=== PATIENT | male | born 1955 | race Caucasian/White ===

== ENCOUNTER → 2017-12-24 | Outpatient (CLI) | payer BC, OTHER | LOC: MHCPAIN 08:54 | DX: G89.29 Other chronic pain (principal); M54.12 Radiculopathy, cervical region; M47.812 Spondylosis without myelopathy or radiculopathy, cervical region; R51 Headache; M79.18 Myalgia, other site | CPT/HCPCS: G0463 ==

== ENCOUNTER 2018-02-06 15:15 | Outpatient (RCR) | payer BC, OTHER | END 2018-02-07 14:50 | disposition home or self-care (01) | LOC: WSPT 15:15 | DX: M47.22 Other spondylosis with radiculopathy, cervical region (principal); G89.29 Other chronic pain; R51 Headache; M54.81 Occipital neuralgia ==

== ENCOUNTER → 2022-12-06 | Outpatient (CLI) | payer OTHER | LOC: MHCPAIN 10:10 | DX: M47.812 Spondylosis without myelopathy or radiculopathy, cervical region (principal); M54.2 Cervicalgia | CPT/HCPCS: J0665 ==

== ENCOUNTER → 2023-03-28 | Outpatient (CLI) | payer MEDICARE, OTHER | LOC: COL.RAD 08:15 | DX: R10.84 Generalized abdominal pain (principal) ==

== ENCOUNTER 2023-05-10 07:47 | Day surgery (SDC) | payer MEDICARE, OTHER ==
[~2023-05-10] VITALS: Ht 167.6 cm; Wt 60.6 kg
[~2023-05-10 07:47] MED LIST: LR 1,000 ML IV SCH; Ondansetron 4 MG/2 ML VIAL IV PRN
[2023-05-10] MEDS ORDERED: LIPITOR 40MG TA40 MG PO (08:03)
[2023-05-10] MEDS ORDERED: MAXALT10 MG PO (08:03)
[2023-05-10] MEDS ORDERED: FIORICET 325 MG1 TA1 PO (08:04)
[2023-05-10] MEDS ORDERED: VITAMIN D31000 I1 PO (08:05)
[2023-05-10] MEDS ORDERED: DIGESTIVE ADVA1 EAC1 PO (08:05)
[2023-05-10] MEDS ORDERED: LEVBID0.375 MG PO (08:06)
--- NOTE | 2023-05-10 08:22 | NUR ---
Pt arrived with , bowels liquid and WNL, VSS, PIV to RAC with LR hanging; consents reviewed and signed, no questions/concerns; reviewed history/meds/pharm/allergies.
[2023-05-10 08:23] VITALS: BP 152/94; PULSE 105; TEMP 97.4
[2023-05-10] MEDS ORDERED: Lidocaine PF 2% (20 MG/ML) 5 ML VIAL ONE (09:32)
[2023-05-10 10:05] VITALS: BP 127/90; PULSE 78; TEMP 97.6
--- NOTE | 2023-05-10 10:05 | NUR ---
The patient arrived back to [facility] from the endoscopy suite at this time. The patient appears alert and oriented and ambulated from the cart to the relciner in his room with the stand by assistance of two nurses and appeared to tolerate the activity well. Post procedure vital signs were started at this time. The patient agrees to try some coffee and a muffin at this time. at bedside. Call light is within reach. Denies any further needs.
[2023-05-10 10:20] VITALS: BP 125/97; PULSE 78
--- NOTE | 2023-05-10 10:20 | NUR ---
The patient has spoke with Dr. Blake and voices a desire to be discharged home. The patient has finished his food and drink and appeared to tolerate both well.
--- NOTE | 2023-05-10 10:25 | NUR ---
Discharge instructions were reviewed with the patient and his at this time. They both verbalized understanding and have no questions for the nurse at this time. The patient's IV to his right anecubital was removed and a pressure dressing was applied to the site. The patient was instructed to get dressed and notify the staff when he is ready to be escorted out.
--- NOTE | 2023-05-10 10:35 | NUR ---
The patient was escorted out via wheelchair to a private vehicle by FRANCISCO Arora. The patient's belongings and discharge papework were sent with him. The patient's is present to drive him home.
== END 2023-05-10 10:35 | disposition home or self-care (01) ==
LOC: SDCO 07:47
DX: Z12.11 Encounter for screening for malignant neoplasm of colon (principal); K21.9 Gastro-esophageal reflux disease without esophagitis; K44.9 Diaphragmatic hernia without obstruction or gangrene; K57.30 Diverticulosis of large intestine without perforation or abscess without bleeding
CPT/HCPCS: 43239; G0121; J2704; J7120

== ENCOUNTER → 2023-10-31 | Outpatient (CLI) | payer OTHER ==
[~2023-10-31] MED LIST changes: +Atropine 1 MG/10 ML SYRINGE IV ONE; +DIGESTIVE ADVA1 EAC1 PO; +FIORICET 325 MG1 TA1 PO; +Glycopyrrolate 0.2 MG/ML 1 ML VIAL ONE; +LEVBID0.375 MG PO; +LIPITOR 40MG TA40 MG PO; -LR 1,000 ML IV SCH; +Lidocaine PF 2% (20 MG/ML) 5 ML VIAL ONE; +MAXALT10 MG PO; +Midazolam 2 MG/2 ML VIAL ONE; -Ondansetron 4 MG/2 ML VIAL IV PRN; +VITAMIN D31000 I1 PO; +ePHEDrine 50 MG/10 ML VIAL IV ONE; +fentaNYL 50 MCG/ML 2 ML VIAL ONE
== END ==
LOC: MHCPAIN 07:33
DX: M47.812 Spondylosis without myelopathy or radiculopathy, cervical region (principal); M54.2 Cervicalgia
CPT/HCPCS: J0461; J0665; J2250; J3010

== ENCOUNTER → 2024-01-06 | Outpatient (CLI) | payer OTHER ==
[~2024-01-06] MED LIST changes: -Atropine 1 MG/10 ML SYRINGE IV ONE; -Glycopyrrolate 0.2 MG/ML 1 ML VIAL ONE; -Lidocaine PF 2% (20 MG/ML) 5 ML VIAL ONE; -Midazolam 2 MG/2 ML VIAL ONE; -ePHEDrine 50 MG/10 ML VIAL IV ONE; -fentaNYL 50 MCG/ML 2 ML VIAL ONE
== END ==
LOC: MHCPAIN 13:00
DX: M54.2 Cervicalgia (principal); G44.86 Cervicogenic headache; E78.5 Hyperlipidemia, unspecified; M50.322 Other cervical disc degeneration at C5-C6 level; M48.02 Spinal stenosis, cervical region
CPT/HCPCS: G0463